=== PATIENT | female | born 1970 | race Caucasian/White ===

== ENCOUNTER 2022-09-12 04:08 | Emergency (ER) | payer OTHER, SELFPAY ==
[2022-09-12] VITALS (9 sets, daily range): BP systolic 108–151; BP diastolic 65–94; PULSE 84–128; RESP 16–22; TEMP 37.6–38.7; O2SAT 92–99; BMI 29.2
--- NOTE | 2022-09-12 04:19 | CT_ITS ---
PROCEDURE INFORMATION: Exam: CT Abdomen And Pelvis Without Contrast Exam date and time: 09/12/2022 4:46 AM Age: 51 years old Clinical indication: Abdominal pain; Flank; Right; Additional info: Right flank pain TECHNIQUE: Imaging protocol: Computed tomography of the abdomen and pelvis without contrast. Radiation optimization: All CT scans at this facility use at least one of these dose optimization techniques: automated exposure control; mA and/or kV adjustment per patient size (includes targeted exams where dose is matched to clinical indication); or iterative reconstruction. REPORTING DATA: Count of CT and Cardiac NM exams in prior 12 months: This patient has received 0 known CTs and 0 known cardiac nuclear medicine studies in the 12 months prior to the current study. COMPARISON: CR XR CHEST 2V 02/18/2019 8:08 PM FINDINGS: Lungs: There is a 6 mm calcified granuloma in the left lower lobe. Liver: Normal. No mass. Gallbladder and bile ducts: Normal. No calcified stones. No ductal dilation. Pancreas: Normal. No ductal dilation. Spleen: Normal. No splenomegaly. Adrenal glands: Normal. No mass. Kidneys and ureters: The right kidney is swollen with [id number] hydronephrosis and hydroureter due to an obstructing 4 mm calculus in the proximal ureter at the level of the upper L4 vertebral body. There is cortical atrophy in the posterior aspect of the left kidney. Stomach and bowel: Scattered colonic diverticula are noted. Appendix: No evidence of appendicitis. Intraperitoneal space: Unremarkable. No free air. No significant fluid collection. Vasculature: Unremarkable. No abdominal aortic aneurysm. Lymph nodes: Shotty subcentimeter aortocaval lymph nodes are noted, nonspecific. Urinary bladder: The urinary bladder is contracted. Reproductive: Unremarkable as visualized. Bones/joints: Unremarkable. No acute fracture. Soft tissues: There is rectus diastasis at the level of the umbilicus. IMPRESSION: Obstructing 4 mm proximal right ureteral calculus. Moderate hydronephrosis. Colonic diverticulosis. Rectus diastasis. Nonspecific shotty retroperitoneal lymphadenopathy probably reactive. Pulmonary granuloma.
--- NOTE | 2022-09-12 04:23 | HMH.EDGENADL ---
Discharge Plan Disposition Patient Disposition: Still a Patient Condition: Good Prescriptions Prescriptions: No Action benzonatate 100 MG capsule 100 mg PO TIDP PRN (Reason: Cough) Qty: 30 0RF levofloxacin 500 MG tablet 500 mg PO DAILY Qty: 7 0RF methylprednisolone 4 MG tablets,dose pack 4 mg PO DIRECTED 6 Days Qty: 21 0RF fluconazole 150 MG tablet 150 mg PO ONCE Qty: 1 2RF Referrals Follow up/Referrals: Criss Mary MD [Primary Care Provider] - See instructions Clinical Impressions Clinical Impression: Calculus of proximal right ureter Instructions Patient Instructions: DI for Low Back Pain Discharge ED Provider: Ale Ma General Adult HPI General Chief complaint: Back Pain/Injury Stated complaint: back pain, chills Time Seen by Provider: 09/12/22 04:18 History of Present Illness HPI narrative: This patient is a 51-year-old female who has a history of diabetes presenting to the emergency department for evaluation with concern for right flank pain. She notes that it started a few days ago but acutely worsened around 2:00 this morning and she was unable to sleep secondary to the pain. She initially thought that she had just pulled a muscle in her back, but it was not getting better with topical pain cream or supportive management. The pain has been intermittent and nonradiating. Nothing seems to make it better or worse. She states that she did have something similar to this 11 years ago, which was a kidney stone that had made her septic. She had to have surgery for this. She denies any recent fevers, chills, chest pain, shortness of breath, cough, congestion, vomiting, changes in bowel movements, dysuria, polyuria, or other concerns. She notes that she has been having chills, body aches, and nausea. No recent falls or injuries noted. Related Data Previous Rx's Medication Instructions Recorded benzonatate 100 mg capsule 100 mg PO TIDP PRN Cough #30 caps 02/18/19 fluconazole 150 mg tablet 150 mg PO ONCE #1 tab 02/18/19 levofloxacin 500 mg tablet 500 mg PO DAILY #7 tabs 02/18/19 methylprednisolone 4 mg tablets in 4 mg PO DIRECTED 6 days ##21 02/18/19 a dose pack Allergies Allergy/AdvReac Type Severity Reaction Status Date / Time No Known Allergies Allergy Verified 01/10/19 09:42 [facility] Disclaimer: The information contained in this section may have been updated after the patient was seen, as this information can be updated by other users. Social History Smoking Status: Never smoker second hand exposure: No alcohol intake: never current occupational status: other Travel in the last 8 weeks: None ROS Obtained: Yes All systems reviewed & no additional complaints except as documented Physical Exam General General appearance: alert and anxious Comment: Uncomfortable appearing Head Head exam: atraumatic and normocephalic Eye Eye exam: Present normal appearance, PERRL and EOMI ENT ENT exam: Present normal exam, normal oropharynx and mucous membranes moist Neck Neck exam: Present normal inspection, full ROM and trachea midline; Absent tenderness Chest Chest inspection: Present normal inspection and symmetric chest wall rise; Absent tenderness Respiratory Respiratory exam: Present normal lung sounds bilaterally; Absent respiratory distress, wheezes, stridor or accessory muscle use Cardiovascular Cardiovascular exam: Present regular rate and normal rhythm Abdominal Exam Abdominal exam: Present soft; Absent distention, tenderness or guarding Extremities Exam Extremities exam: Present normal inspection and full ROM; Absent tenderness Back Exam Back exam: Present tenderness (Right-sided paraspinal), CVA tenderness (R) and paraspinal tenderness; Absent CVA tenderness (L), vertebral tenderness or rashes Neurological Exam Neurological exam: Present alert, oriented X3, CN II-XII intact and normal ga
--- NOTE | 2022-09-12 04:42 | PC.NURSE ---
Pt to CT
[2022-09-12 04:50] LABS: Microscopic, Urine URINE MICROSCOPIC (MICROSCOPIC)
[2022-09-12 04:52] LABS: Appearance,Urine CLEAR (Clear); Basophils % 0.7 % (0.1-2.0); Bilirubin,Urine Negative (Negative); Blood, Urine 1+ (Negative); Color,Urine YELLOW (Yellow); Eosinophils # 0.2 K/mm3 (0.0-0.4); Eosinophils % 2.8 % (0.1-12.0); Glucose,Urine (UA) Negative (Negative); Hematocrit 40.2 % (37.0-47.0); Hemoglobin 13.1 g/dL (12.2-16.2); Ketones,Urine Negative (Negative); Leukocyte Esterase,Urine 1+ (Negative); Lymphocytes # 0.6 K/mm3 (0.7-4.5); Lymphocytes % 9.6 % (10-50); Mean Corpuscular HGB Conc 32.5 g/dL (31.8-35.4); Mean Corpuscular Hemoglobin 29.8 pg (27.0-31.2); Mean Corpuscular Volume 91.8 fl (81-99); Mean Platelet Volume 8.4 fl (7.4-10.4); Monocytes # 0.1 K/mm3 (0.1-1.0); Monocytes % 1.4 % (1.7-9.3); Neutrophils # 5.2 K/mm3 (1.8-7.8); Neutrophils % 85.6 % (37.0-80.0); Nitrate,Urine POSITIVE (Negative); PH,Urine 6.5 (5.0-8.5); Platelet Count 221 K/mm3 (142-424); Protein,Urine Negative (Negative); Red Blood Count 4.38 M/mm3 (4.20-5.40); Red Cell Distribution Width 13.5 % (11.5-17.5); Specific Gravity, Urine 1.015 (1.005-1.030); Urobilinogen,Urine 0.2 EU/dl (0.2); White Blood Count 6.1 K/mm3 (4.8-10.8)
[2022-09-12 05:00] LABS: MANUAL DIFFERENTIAL MANUAL DIFFERENTIAL (MANUAL DIFF)
--- NOTE | 2022-09-12 05:00 | PC.NURSE ---
Rounded on pt. Advised pain was down to a 2, provided pt with warm blanket and pillow. Updated on POC. No other needs at this time, call button within reach.
[2022-09-12 05:03] LABS: Alanine Aminotransferase 39 U/L (12-78); Albumin Level 4.6 g/dl (3.5-5.0); Albumin/Globulin Ratio 1.6 (1.1-1.8); Alkaline Phosphatase 69 U/L (38-126); Aspartate Amino Transferase 34 U/L (14-36); Bilirubin,Total 0.4 mg/dl (0.2-1.3); Blood Urea Nitrogen 18 mg/dl (7-17); Calcium 9.8 mg/dl (8.4-10.2); Carbon Dioxide 21 mmol/L (22.0-30.0); Chloride 107 mmol/L (98-107); Creatinine Clearance Estimated 70 mL/min (50-200); Estimated Glomerular Filt Rate 52 ml/min (>60); GFR (African American) 63 ML/MIN (>60); Globulin 2.8 g/dL (1.3-3.2); Glucose 152 mg/dl (74-100); Sodium 142 mmol/L (136-145); Total Protein,Serum 7.4 g/dl (6.3-8.2)
--- NOTE | 2022-09-12 05:20 | PC.NURSE ---
MD at bedside updating pt on POC and CT results
--- NOTE | 2022-09-12 05:21 | PC.NURSE ---
Calling [facility]
--- NOTE | 2022-09-12 05:22 | PC.NURSE ---
came out and advised pt would rather go to [facility]. Calling transfer center at this time
[2022-09-12 05:25] LABS: Lactic Acid 2.2 mmol/L (0.7-2.1)
--- NOTE | 2022-09-12 05:26 | PC.NURSE ---
Waiting for return call from [facility]
[2022-09-12 05:33] LABS: Bacteria,Urine 4+ /lpf
--- NOTE | 2022-09-12 05:47 | PC.NURSE ---
Edna from called back and advised to have Dr. Ma call Dr. Montaño, urologist professional organizer.
--- NOTE | 2022-09-12 05:47 | PC.NURSE ---
Dr. Ma speaking with Dr. Montaño at this time.
--- NOTE | 2022-09-12 05:50 | PC.NURSE ---
Dr. Montaño advised to obtain UA via cath and to speak with hospitalist at . Spoke with Edna at , hospitalist paged
[2022-09-12 06:07] LABS: Eosinophils % 3 % (0-3); Lymphocytes % 11 % (10-50); Neutrophils % 86 % (42-76); Platelet Estimate Normal; RBC Morphology Normal; Total Cells Counted 100
--- NOTE | 2022-09-12 06:20 | PC.NURSE ---
Pt straight cath at this time. Tolerated procedure well, urine sent to lab.
--- NOTE | 2022-09-12 06:42 | PC.NURSE ---
Called [facility] to check status of return call from hospitalist. Edna advised they were waiting for them to call back.
--- NOTE | 2022-09-12 06:47 | PC.NURSE ---
Rounded on pt and updated and pt that we were waiting on Yazidi to call us back. Pt advised she was having pain again. Notified MD, orders placed.
[2022-09-12 06:49] LABS: Microscopic,Cath URINE MICROSCOPIC (MICROSCOPIC)
--- NOTE | 2022-09-12 06:50 | PC.NURSE ---
speaking with Raeann
[2022-09-12 06:52] LABS: Appearance,Urine/Cath CLEAR (Clear); Bilirubin,Cath Negative (Negative); Blood, Urine/Cath TRACE-I (Negative); Color,Urine/Cath YELLOW (Yellow); Glucose,Urine/Cath (UA) Negative (Negative); Ketones,Urine/Cath Negative (Negative); Leukocyte Esterase,Cath Negative (Negative); Nitrate,Cath POSITIVE (Negative); PH,Urine/Cath 5.5 (5.0-8.5); Protein,Urine/Cath Negative (Negative); Urobilinogen,Cath 0.2 EU/dl (0.2)
--- NOTE | 2022-09-12 07:00 | PC.NURSE ---
Spoke with Amparo at [facility], advised that she would begin working on a transfer. Facesheet faxed to [phone]
[2022-09-12 07:06] LABS: Bacteria,Urine/Cath 1+ /lpf
--- NOTE | 2022-09-12 07:20 | PC.NURSE ---
Blood collected for repeat Lactic. Pt now reporting chills, continued pain, and persistent nausea. Re-checked her temp and it si 101.7. Dr. Darby notified of this. Pt updated on transfer status.
--- NOTE | 2022-09-12 07:21 | PC.NURSE ---
Report given during shift change huddle
--- NOTE | 2022-09-12 07:28 | PC.NURSE ---
Dr. Darby speaking with Dr. Mccabe, Urologist at [facility]
--- NOTE | 2022-09-12 07:43 | PC.NURSE ---
antibiotics ordered by previous MD on prior shift and given. MD on shift at this time ordered blood cultures to be drawn, lab contacted
--- NOTE | 2022-09-12 07:46 | PC.NURSE ---
Contacting [facility] at this time for possible transfer
[2022-09-12 07:47] LABS: Lactic Acid 2.5 mmol/L (0.7-2.1)
--- NOTE | 2022-09-12 07:52 | PC.NURSE ---
images powershared to [facility], spoke with Jazzy in radiology
--- NOTE | 2022-09-12 07:53 | PC.NURSE ---
Dr. Darby speaking with [facility] [employer] at this time
--- NOTE | 2022-09-12 08:04 | PC.NURSE ---
Dr Darby at bedside, he would like pt to go by EMS/Ambulance to [facility]. Pt and her agree.
--- NOTE | 2022-09-12 08:26 | PC.NURSE ---
Called report to Charge Casandra HUGHES @ [facility]
--- NOTE | 2022-09-12 08:28 | PC.NURSE ---
Called EMS for transport to [facility]
[2022-09-12 08:48] LABS: Reflex Lactic Add Lactic Reflex
--- NOTE | 2022-09-12 09:07 | PC.NURSE ---
[facility] here for transfer to ER
== END 2022-09-12 09:27 | disposition still patient (30) ==
PROVIDERS: Emergency Medicine; Emergency Provider Student in an Organized Health Care Education/Training Program; PCP Family Medicine
DX: N13.2 Hydronephrosis with renal and ureteral calculous obstruction (principal); R00.0 Tachycardia, unspecified; E11.9 Type 2 diabetes mellitus without complications; I10 Essential (primary) hypertension
CPT/HCPCS: 74176; 80053; 81001; 83605; 85007; 85025; 87040; 87086; 87088; 87186; 96361; 96374; 96375; 96376; 99291; J0131; J0696; J2405

== ENCOUNTER 2023-09-17 18:28 | Emergency (ER) | payer OTHER, SELFPAY ==
[2023-09-17 18:50] VITALS: BP 137/84; PULSE 76; RESP 18; TEMP 36.9; O2SAT 99; BMI 29.7
--- NOTE | 2023-09-17 19:19 | EXP.UTC ---
Discharge Plan Disposition Patient Disposition: Home, Self-Care Condition: Good Prescriptions Prescriptions: New amoxicillin 500 mg tablet 500 mg PO TID 10 Days Qty: 30 0RF ciprofloxacin-dexamethasone 0.3-0.1 % drops,suspension 4 drp otic (ear) BID 7 Days Qty: 7.5 0RF Rx Instructions: apply to left ear as directed No Action estradiol [Magali] 0.1 mg/24 hr patch semiweekly 1 patch topical DAILY potassium chloride 10 mEq tablet extended release 10 meq PO DAILY metformin 1,000 mg tablet 1,000 mg PO DAILY progesterone micronized 200 mg capsule 200 mg PO DAILY estradiol 0.01 % (0.1 mg/gram) cream 1 appful VAGINAL DAILY rosuvastatin 20 mg tablet 20 mg PO DAILY Referrals Follow up/Referrals: Criss Mary MD [Primary Care Provider] - See instructions Sukhdev Veliz MD [Physician] - See instructions James Kern MD [Physician] - See instructions Mohini Oliveros APRN [Nurse Practitioner] - See instructions Activity Restrictions/Add. Instructions Additional Instructions/Restrictions: Take medication as prescribed Use ear drops as prescribed Follow up with ENT or your Family Doctor if no improvement or any worsening of symptoms Return if needed Straight to ER if any life threatening symptoms Clinical Impressions Clinical Impression: Otitis media, Otitis externa Instructions Patient Instructions: Amoxicillin, Ciprofloxacin and Dexamethasone Otic Print Language Print Language: Citizen Of [place] Discharge ED Provider: Rufina Barrios [facility] General Stated complaint: left ear pain swelling Mode of Arrival: Ambulatory Source of Information: Patient Limitations: No Limitations Time Seen by Provider: 09/17/23 19:19 Description of Symptoms (Recalled from Triage Doc. by RN): PATIENT C/O LEFT EAR PAIN AND PRESSURE X 12 DAYS HEENT Symptoms (Recalled from RN notes): Yes Resp Symptoms (Recalled from RN notes): No Skin Symptoms (Recalled from RN notes): No MS Symptoms (Recalled from RN notes): No Functional Status (Recalled from RN notes): WNL History of Present Illness Provider Complaint: Patient states that she has been having pain and pressure in her left ear for about 2 weeks and tenderness on the outside of her ear when touched and moved states that she hasnt had any drainage or anything but the pain and tenderness has continued so today she came in to get it checked Related Data Home Medications ?Medication ?Instructions ?Recorded ?Confirmed estradiol 0.01% (0.1 mg/gram) 1 appful vaginal DAILY 09/17/23 09/17/23 vaginal cream estradiol 0.1 mg/24 hr semiweekly 1 patch topical DAILY 09/17/23 09/17/23 transdermal patch (Magali) metformin 1,000 mg tablet 1,000 mg PO DAILY 09/17/23 09/17/23 potassium chloride 10 mEq 10 meq PO DAILY 09/17/23 09/17/23 tablet,extended release progesterone micronized 200 mg 200 mg PO DAILY 09/17/23 09/17/23 capsule rosuvastatin 20 mg tablet 20 mg PO DAILY 09/17/23 09/17/23 Previous Rx's ?Medication ?Instructions ?Recorded amoxicillin 500 mg tablet 500 mg PO TID 10 days #30 tabs 09/17/23 ciprofloxacin 0.3 %-dexamethasone 4 drp otic (ear) BID 7 days #7.5 mL 09/17/23 0.1 % ear drops,suspension Allergies Allergy/AdvReac Type Severity Reaction Status Date / Time No Known Allergies Allergy Verified 01/10/19 09:42 Worker's Comp Is this a Worker's Comp case?: No [facility] Disclaimer: The information contained in this section may have been updated after the patient was seen, as this information can be updated by other users. Medical History (Updated 09/17/23 @ 19:30 by Rufina Barrios APRN) Kidney stone Diabetes mellitus, type 2 Hyperlipidemia Surgical History (Updated 09/17/23 @ 19:02 by Angelica Stock RN) History of tubal ligation History of section Social History Smoking Status: Never smoker second hand exposure: No alcohol intake: never current occupational status: other Travel in the last 8 weeks: None ROS Obtained: Yes All systems reviewed & no additional complaints except as documented and Yes Systems reviewed as appropriate & no additional complaints except as documented Constitutional Constitutional: Reports system reviewed and no additional complaints, except as documented and Reports as per HPI ENT Ears, Nose, Mouth, and Throat: Reports system reviewed and no additional complaints, except as documented, Reports as per HPI and Reports otalgia Cardiovascular Cardiovascular: Reports system reviewed and no additional complaints, except as documented and Reports as per HPI Respiratory Respiratory: Reports system reviewed and no additional complaints, except as documented and Reports as per HPI Gastrointestinal Gastrointestingal: Reports system reviewed and no additional complaints, except as documented and as per HPI Physical Exam General General appearance: alert and in no apparent distress Expanded ENT Exam External ear exam: Present pain with movement and external tenderness TM/Canal exam: Left TM: loss of landmarks Respiratory Respiratory exam: Present normal lung sounds bilaterally; Absent respiratory distress or wheezes Cardiovascular Cardiovascular exam: Present regular rate, normal rhythm and normal heart sounds Neurological Exam Neurological exam: Present alert, oriented X3 and normal gait Medical Decision Making Daryl Inquiry Pt receiving controlled substance: No Daryl was queried for this patient: No Vital Signs: 09/17/23 18:50 Temperature 98.5 F Temperature Source Oral Pulse Rate [Left Brachial] 76 Respiratory Rate 18 Blood Pressure [Left Arm] 137/84 Blood Pressure Mean [Left Arm] 101 Blood Pressure Source [Left Arm] Automatic Cuff Blood Pressure Position [Left Arm] Sitting 02 Sat by Pulse Oximetry 99 Oxygen Delivery Method Room Air
[2023-09-17 19:32] VITALS: BP 137/84; PULSE 76; RESP 18; TEMP 36.9; O2SAT 99
== END 2023-09-17 19:36 | disposition home or self-care (01) ==
PROVIDERS: Emergency Provider Nurse Practitioner; PCP Family Medicine
DX: H66.92 Otitis media, unspecified, left ear (principal); H60.92 Unspecified otitis externa, left ear; H92.02 Otalgia, left ear
CPT/HCPCS: 99204; 99212; G0463